=== PATIENT | male | born 1950 | race Caucasian/White ===

== ENCOUNTER 2024-01-31 09:54 | Emergency (ER) | payer MEDICAID, MEDICARE ==
[~2024-01-31] VITALS: Ht 175.3 cm; Wt 76.5 kg
[2024-01-31] MEDS: normal saline 1000ml 1,000 ML IV ONE (10:48)
[2024-01-31] MEDS: ondansetron/PF 4mg/2ml inj IV ONE (10:48)
[2024-01-31 11:06] LABS: BASOPHILS % (AUTO) 0.3 % (0-1); EOSINOPHILS # (AUTO) 0.1 X10'3 (0-0.9); EOSINOPHILS % (AUTO) 0.9 % (0-6); HEMATOCRIT 46.1 % (42.0-52.0); HEMOGLOBIN 15.3 g/dl (14.0-17.9); LYMPHOCYTES # (AUTO) 1.1 X10'3 (1.1-4.8); LYMPHOCYTES % (AUTO) 7.4 % (21-51); MEAN CORPUSCULAR HEMOGLOBIN 30.4 PG (27.0-31.0); MEAN CORPUSCULAR HGB CONC 33.2 g/dL (33.0-36.5); MEAN CORPUSCULAR VOLUME 91.5 FL (78-98); MEAN PLATELET VOLUME 9.2 FL (7.4-10.4); MONOCYTES # (AUTO) 0.7 X10'3 (0-0.9); MONOCYTES % (AUTO) 4.5 % (2-12); NEUTROPHILS % (AUTO) 86.9 % (42-75); PLATELET COUNT 203 X10'3 (140-440); RED BLOOD COUNT 5.04 X10'6 (4.70-6.10)
[2024-01-31 11:17] LABS: ALANINE AMINOTRANSFERASE 19 U/L (12-78); ALBUMIN 3.8 G/DL (3.4-5.0); ALBUMIN/GLOBULIN RATIO 1.2 (1.1-1.5); ALKALINE PHOSPHATASE 43 IU/L (46-116); ANION GAP 9 (8-16); ASPARTATE AMINO TRANSFERASE 15 U/L (10-37); BILIRUBIN,TOTAL 0.5 MG/DL (0.1-1.0); BLOOD UREA NITROGEN 12 MG/DL (7-18); CALCIUM 8.7 MG/DL (8.5-10.1); CHLORIDE 104 MMOL/L (99-107); GLUCOSE 194 MG/DL (70-104); POTASSIUM 4.3 MMOL/L (3.5-5.1); SODIUM 139 MMOL/L (135-145); TOTAL CARBON DIOXIDE 25.8 MMOL/L (24-32); eCRCL 54 ML/MIN; eGFR 59 ML/MIN
[2024-01-31 11:28] LABS: BILIRUBIN,URINE NEGATIVE (Neg); CLARITY,URINE CLEAR (Clear); COLOR,URINE YELLOW (Yellow); GLUCOSE, URINE 250 mg/dl (Neg); KETONES,URINE 15 mg/dl (Neg); LEUKOCYTE ESTERASE ,URINE NEGATIVE (Neg); NITRITES, URINE NEGATIVE (Neg); OCCULT BLOOD,URINE TRACE-INTACT (Neg); PROTEIN,URINE TRACE mg/dl (Neg); UROBILINOGEN,URINE 0.2 E.U/dL (0.2-1.0)
[2024-01-31 11:32] LABS: UA COLLECTION TYPE STRAIGHT CATH
[2024-01-31 11:33] LABS: BACTERIA,URINE FEW /HPF (Neg); SQUAMOUS EPITHELIAL CELL,UR FEW /LPF (FEW)
[2024-01-31 11:34] LABS: MUCUS STRANDS FEW /LPF (Neg)
[2024-01-31] MEDS: normal saline 1000ml 1,000 ML IV SCH (13:21)
[2024-01-31] MEDS: CefTRIAXone/D5W-Rocephin 1gm 50 ML IV ONE (13:21)
[2024-01-31] MEDS ORDERED: CEFU500T66 PO (15:12)
[2024-01-31 15:18] VITALS: BP 138/82; PULSE 68; RESP 12; O2SAT 98
== END 2024-01-31 15:21 | disposition home or self-care (01) ==
LOC: ER 09:54
DX: N39.0 Urinary tract infection, site not specified (principal); I95.1 Orthostatic hypotension
CPT/HCPCS: 36415; 71045; 80053; 81001; 83605; 85025; 87088; 93005; 96361; 96365; 96375; 99285; J0696; J2405; J7030